=== PATIENT | male | born 1945 | race Caucasian/White ===

== ENCOUNTER → 2024-03-31 14:02 | Outpatient (REF) | payer OTHER, SELFPAY | LOC: HWRAD 14:02 | PROVIDERS: ATTENDING PHYSICIAN Student in an Organized Health Care Education/Training Program; FAMILY PHYSICIAN Nurse Practitioner Adult Health | DX: M10.9 Gout, unspecified (principal); M79.676 Pain in unspecified toe(s) | CPT/HCPCS: 73630 ==